=== PATIENT | female | born 1965 | race Native Hawaiian/Other Pacific Islander ===

== ENCOUNTER 2020-11-27 15:11 | Outpatient (CLI) | payer OTHER ==
[2020-11-27 15:32] LABS: PLATELET COUNT 294 K/uL (152-353)
[2020-11-27 16:07] LABS: POTASSIUM 4.1 mmol/L (3.6-5.2)
== END 2020-11-27 19:40 | disposition home or self-care (01) ==
LOC: LAB 15:11
PROVIDERS: ATTEND Physician Assistant
DX: Z13.29 Encounter for screening for other suspected endocrine disorder (principal); Z13.0 Encounter for screening for diseases of the blood and blood-forming organs and certain disorders involving the immune mechanism; Z13.220 Encounter for screening for lipoid disorders; L65.9 Nonscarring hair loss, unspecified; R63.5 Abnormal weight gain; R53.83 Other fatigue; R53.81 Other malaise; R68.82 Decreased libido
CPT/HCPCS: 80053; 80061; 82306; 82607; 82670; 83001; 83036; 84403; 84439; 84443; 84481; 85027; 86376